=== PATIENT | female | born 1985 ===

== ENCOUNTER 2018-12-04 03:32 | Emergency (ER) | payer OTHER ==
[2018-12-04 03:52] VITALS: O2SAT 100
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
[2018-12-04 06:18] VITALS: BP 125/75; RESP 16; TEMP 97.8
[2018-12-04 06:46] VITALS: PULSE 80
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
== END 2018-12-04 06:44 ==
LOC: H.ER 03:32
DX: F10.129 Alcohol abuse with intoxication, unspecified (principal); Z04.1 Encounter for examination and observation following transport accident
CPT/HCPCS: 70450; 81025; 99283; G0480